=== PATIENT | female | born 1935 | race Caucasian/White ===

== ENCOUNTER 2023-03-04 12:59 | Emergency (ER) | payer MEDICARE, MEDICAID ==
[~2023-03-04] VITALS: Ht 160 cm; Wt 51.0 kg
[~2023-03-04 12:59] MED LIST: ATOR20TA66 PO; CARV3.12 PO; LORA10CA PO
[2023-03-04 13:08] VITALS: BP 169/77; PULSE 97; RESP 17; TEMP 98.2; O2SAT 97
== END 2023-03-04 14:11 | disposition left against medical advice (07) ==
LOC: ER 13:00
DX: S40.862A Insect bite (nonvenomous) of left upper arm, initial encounter (principal); S20.469A Insect bite (nonvenomous) of unspecified back wall of thorax, initial encounter; Z53.21 Procedure and treatment not carried out due to patient leaving prior to being seen by health care provider; W57.XXXA Bitten or stung by nonvenomous insect and other nonvenomous arthropods, initial encounter; Y93.89 Activity, other specified; Y92.89 Other specified places as the place of occurrence of the external cause; Y99.8 Other external cause status
CPT/HCPCS: 99281